=== PATIENT | male | born 2000 ===

== ENCOUNTER 2019-01-28 13:53 | Emergency (ER) | payer OTHER ==
[2019-01-28 14:18] VITALS: BP 118/81; PULSE 126; RESP 17; TEMP 98.9; O2SAT 96
--- NOTE | 2019-01-28 15:01 | ED PDOC ---
HPI: General Adult Time Seen by Provider: 01/28/19 14:36 Chief Complaint (Nursing): Abnormal Skin Integrity History Per: Patient Onset/Duration Of Symptoms: Days (3) Current Symptoms Are (Timing): Still Present Severity: Moderate Additional Complaint(s): Pain swelling and yellow drainage from coccygeal area x 3 days. Denies fever. Abscess popped and started draining spontaneously. Denies fever or chills Past Medical History Vital Signs: Last Vital Signs Temp 98.9 F 01/28/19 14:15 Pulse 126 H 01/28/19 14:15 Resp 17 01/28/19 14:15 BP 118/81 01/28/19 14:15 Pulse Ox 96 01/28/19 14:15 - Medical History PMH: No Chronic Diseases - Family History Family History: States: Unknown Family Hx - Home Medications Home Medications: Ambulatory Orders Medication Instructions Recorded Sulfamethoxazole/Trimethoprim 1 tab PO BID #20 tab 01/28/19 [Bactrim DS 800 mg-160 mg] traMADol [Ultram] 50 mg PO Q8 #10 tab 01/28/19 - Allergies Allergies/Adverse Reactions: Allergies Allergy/AdvReac Type Severity Reaction Status Date / Time No Known Allergies Allergy Verified 01/28/19 14:14 Review of Systems Constitutional: Negative for: Fever, Chills Genitourinary Male: Positive for: Other (Pilonidal cyst) Physical Exam - Physical Exam Appears: Positive for: Non-toxic, No Acute Distress Skin: Positive for: Normal Color, Warm, DRY Rectal: Positive for: Other (Minimal erythema pilonidal carol with cental area of open drainage,Yellow foul smelling material.) - ECG O2 Sat by Pulse Oximetry: 96 Disposition - Clinical Impression Clinical Impression: Pilonidal abscess - Patient ED Disposition Is Patient to be Admitted: No Counseled Patient/Family Regarding: Diagnosis, Need For Followup, Rx Given - Disposition Referrals: Navneet Ring MD [Staff Provider] - Disposition: Routine/Home Disposition Time: 15:04 Condition: FAIR Prescriptions: Sulfamethoxazole/Trimethoprim [Bactrim DS 800 mg-160 mg] 1 tab PO BID #20 tab traMADol [Ultram] 50 mg PO Q8 #10 tab Instructions: Pilonidal Cyst
== END 2019-01-28 15:04 | disposition home or self-care (01) ==
LOC: H.ER 13:53
DX: L05.01 Pilonidal cyst with abscess (principal)